=== PATIENT | female | born 1985 | race Caucasian/White ===

== ENCOUNTER → 2018-09-14 | Outpatient (CLI) | payer BC | LOC: M SLEEP HO 13:19 | DX: G47.30 Sleep apnea, unspecified (principal) | CPT/HCPCS: G0399 ==

== ENCOUNTER → 2019-01-17 | Outpatient (CLI) | payer BC ==
--- NOTE | 2019-01-23 10:37 | REP ---
Clinical: Abdominal pain. Sitz marker study. Technique: Single supine view of the abdomen and pelvis. Findings: Bowel gas pattern is nonspecific. No residual markers are identified. No organomegaly. Skeletal structures intact. No abnormal calcifications. Impression: Nonspecific abdominal radiograph. No residual sitz markers noted. Electronically Signed by Karl Lee MD 01/23/2019 10:29 A
== END ==
LOC: M RAD 13:30
PROVIDERS: ATTEND Internal Medicine Gastroenterology
DX: R93.5 Abnormal findings on diagnostic imaging of other abdominal regions, including retroperitoneum (principal); R10.9 Unspecified abdominal pain; R14.0 Abdominal distension (gaseous)

== ENCOUNTER → 2020-06-12 | Outpatient (CLI) | payer BC ==
[~2020-06-12] MED LIST: METHACHOLINE KIT (J7674) INH ONE
--- NOTE | 2020-06-26 12:57 | PFTRPT ---
Height: 63.50 Inches Weight: 153.00 Lbs BSA: 1.74 Diagnosis: R05 DATE OF STUDY: 06/12/2020 ORDERED BY: SARI Mares QUALITY: Study of excellent technical quality. PROCEDURE: Under protocol, methacholine was administered. A dose of 2.5 mg or 13.875 CDUs, a 34% decline of the FEV1 was noted. PC of 0.76 is significant. Flow rates did return to baseline post-bronchodilator administration. IMPRESSION: Positive methacholine challenge study. MTDD
== END ==
LOC: M CARPUL 13:23
PROVIDERS: ATTEND Nurse Practitioner Family
DX: R05 Cough (principal)
CPT/HCPCS: 94070; J7674

== ENCOUNTER → 2021-09-01 | Outpatient (CLI) | payer BC ==
--- NOTE | 2021-09-01 09:34 | REP ---
INDICATION: MILD PERSISTENT ASTHMA, UNCOMPLICATED COMPARISON: None. TECHNIQUE: PA and lateral. FINDINGS: The mediastinum and cardiac silhouette are normal. The lung fung are clear and without acute consolidation, effusion, or pneumothorax. The skeletal structures are intact and normal. IMPRESSION: No acute cardiopulmonary process. <Electronically signed by Karl Lee > 09/01/21 0931
== END ==
LOC: M ADAMS 09:10
PROVIDERS: ATTEND Nurse Practitioner Family
DX: J45.30 Mild persistent asthma, uncomplicated (principal)

== ENCOUNTER → 2021-09-14 | Outpatient (CLI) | payer BC | LOC: M SLEEP HO 12:40 | PROVIDERS: ATTEND Nurse Practitioner Family | DX: G47.33 Obstructive sleep apnea (adult) (pediatric) (principal) ==

== ENCOUNTER 2022-01-02 17:04 | Emergency (ER) | payer BC ==
[~2022-01-02] VITALS: Ht 162.6 cm; Wt 73.2 kg
[2022-01-02] MEDS ORDERED: ALBU8.5H (17:09)
[2022-01-02] MEDS ORDERED: PANT40TA29 (17:09)
[2022-01-02] MEDS ORDERED: ASMA16.7 (17:09)
[2022-01-02] MEDS ORDERED: LEVE500T5 (17:09)
[2022-01-02] MEDS ORDERED: FAMO40TA3 (17:09)
[2022-01-02] MEDS ORDERED: NS 1,000 ML IV ONE (17:40)
[2022-01-02] MEDS ORDERED: ONDANSETRON 4MG/2ML VIAL IV ONE (17:40)
[2022-01-02] MEDS ORDERED: KETOROLAC 30 MG/ML 1ML VIAL IV ONE (17:40)
[2022-01-02 18:35] LABS: BASO % 0.4 % (0.0-1.0); EOS # 0.2 10^3/uL (0.0-0.5); EOS % 1.5 % (0.0-3.0); HEMATOCRIT 41.3 % (36.0-47.0); LYMPH # 2.1 10^3/uL (1.5-5.0); LYMPH % 18.8 % (24.0-44.0); MEAN CORPUSCULAR HEMOGLOBIN 29.7 pg (27.0-33.0); MEAN CORPUSCULAR HGB CONC 33.9 g/dl (32.0-36.5); MEAN CORPUSCULAR VOLUME 87.7 fl (80.0-96.0); MONO # 1.1 10^3/uL (0.0-0.8); MONO % 9.8 % (2.0-8.0); NEUTROPHILS # 7.8 10^3/uL (1.5-8.5); NEUTROPHILS % 69.2 % (36.0-66.0); PLATELET COUNT, AUTOMATED 255 10^3/uL (150-450); RED BLOOD COUNT 4.71 10^6/uL (4.00-5.40); WHITE BLOOD COUNT 11.3 10^3/uL (4.0-10.0)
[2022-01-02] MEDS ORDERED: ISOVUE-370 76% 100ML VIAL As Ordered ONE (18:46)
[2022-01-02 18:52] LABS: ALT/SGPT 32 U/L (12-78); BILIRUBIN,DIRECT < 0.1 MG/DL (0.0-0.2); BILIRUBIN,TOTAL 0.2 MG/DL (0.2-1.0); LIPASE 298 U/L (73-393); TOTAL PROTEIN 7.3 GM/DL (6.4-8.2)
[2022-01-02 20:08] VITALS: BP 131/86
== END 2022-01-02 20:16 | disposition home or self-care (01) ==
LOC: M ED 17:04
DX: E28.2 Polycystic ovarian syndrome (principal); J45.909 Unspecified asthma, uncomplicated; N80.9 Endometriosis, unspecified; K21.9 Gastro-esophageal reflux disease without esophagitis; Z79.899 Other long term (current) drug therapy; F17.210 Nicotine dependence, cigarettes, uncomplicated
CPT/HCPCS: 74177; 80047; 80076; 81001; 83690; 84702; 85025; 96361; 96374; 96375; 99284; J1885; J2405; Q9967

== ENCOUNTER 2022-05-29 11:24 | Emergency (ER) | payer BC ==
[~2022-05-29] VITALS: Ht 162.6 cm; Wt 74.2 kg
[~2022-05-29 11:24] MED LIST changes: +ALBU8.5H; +ASMA16.7; +FAMO40TA3; +LEVE500T5; -METHACHOLINE KIT (J7674) INH ONE; +PANT40TA29
[2022-05-29] MEDS ORDERED: OMEP1CAP71 PO (11:40)
[2022-05-29 12:29] LABS: BASO # 0.1 10^3/uL (0.0-0.2); BASO % 0.6 % (0.0-1.0); EOS # 0.2 10^3/uL (0.0-0.5); EOS % 2.9 % (0.0-3.0); HEMOGLOBIN 14.1 g/dl (12.0-15.5); LYMPH # 2.4 10^3/uL (1.5-5.0); LYMPH % 28.7 % (24.0-44.0); MEAN CORPUSCULAR HEMOGLOBIN 30.3 pg (27.0-33.0); MEAN CORPUSCULAR HGB CONC 33.6 g/dl (32.0-36.5); MEAN CORPUSCULAR VOLUME 90.3 fl (80.0-96.0); MONO # 0.8 10^3/uL (0.0-0.8); MONO % 9.5 % (2.0-8.0); NEUTROPHILS # 4.8 10^3/uL (1.5-8.5); NEUTROPHILS % 57.8 % (36.0-66.0); PLATELET COUNT, AUTOMATED 267 10^3/uL (150-450); RED BLOOD COUNT 4.65 10^6/uL (4.00-5.40); WHITE BLOOD COUNT 8.3 10^3/uL (4.0-10.0)
[2022-05-29 12:42] LABS: INR 0.94; PARTIAL THROMBOPLASTIN TIME 25.9 SECONDS (25.9-37.0)
[2022-05-29] MEDS ORDERED: ISOVUE-370 76% 100ML VIAL As Ordered ONE ×2 (12:58→14:25)
[2022-05-29 13:10] LABS: CK-MB VALUE MASS < 1.0 NG/ML (<3.6); CPK CREATINE PHOSPHOKINASE 97 U/L (26-192); MB/CK RELATIVE INDEX 1.03 (< OR =4)
[2022-05-29 13:46] LABS: ERYTHROCYTE SEDIMENTATION RATE 19 mm/hr (0-20)
[2022-05-29] MEDS ORDERED: PRED10TA2 PO (15:50)
[2022-05-29] MEDS ORDERED: TETRACAINE 0.5% OPHTH SOLN 4ML OU ONE (16:10)
[2022-05-29 16:34] VITALS: BP 128/85
== END 2022-05-29 17:21 | disposition home or self-care (01) ==
LOC: M ED 11:24
DX: H57.02 Anisocoria (principal); J45.909 Unspecified asthma, uncomplicated; K21.9 Gastro-esophageal reflux disease without esophagitis; Z79.899 Other long term (current) drug therapy; Z87.891 Personal history of nicotine dependence
CPT/HCPCS: 36415; 70450; 70496; 70498; 71045; 80047; 82550; 82553; 84702; 85025; 85610; 85652; 85730; 86140; 86618; 93005; 93041; 94760; 99285; Q9967

== ENCOUNTER 2022-09-26 18:23 | Emergency (ER) | payer BC ==
[~2022-09-26] VITALS: Ht 162.6 cm; Wt 74.3 kg
[~2022-09-26 18:23] MED LIST changes: +OMEP1CAP71 PO; +PRED10TA2 PO
[2022-09-26 18:24] VITALS: BP 135/72
[2022-09-26 20:35] LABS: BASO % 0.3 % (0.0-1.0); EOS # 0.2 10^3/uL (0.0-0.5); HEMATOCRIT 42.5 % (36.0-47.0); HEMOGLOBIN 14.3 g/dl (12.0-15.5); LYMPH % 28.1 % (24.0-44.0); MEAN CORPUSCULAR HEMOGLOBIN 29.2 pg (27.0-33.0); MEAN CORPUSCULAR HGB CONC 33.6 g/dl (32.0-36.5); MEAN CORPUSCULAR VOLUME 86.7 fl (80.0-96.0); MONO # 0.9 10^3/uL (0.0-0.8); MONO % 8.6 % (2.0-8.0); NEUTROPHILS # 6.4 10^3/uL (1.5-8.5); NEUTROPHILS % 60.7 % (36.0-66.0); PLATELET COUNT, AUTOMATED 257 10^3/uL (150-450); WHITE BLOOD COUNT 10.5 10^3/uL (4.0-10.0)
[2022-09-26 20:48] LABS: INR 0.9; PARTIAL THROMBOPLASTIN TIME 27.1 SECONDS (24.8-34.2); PROTHROMBIN TIME 12.3 SECONDS (12.5-14.5)
[2022-09-26 21:07] LABS: ALKALINE PHOSPHATASE 98 U/L (46-116); ALT/SGPT 14 U/L (7.0-40); AST/SGOT 14 U/L (<34); BILIRUBIN,DIRECT < 0.1 MG/DL (<0.4); BILIRUBIN,TOTAL 0.2 MG/DL (0.3-1.2); BLOOD UREA NITROGEN 18 MG/DL (9-23); CALCIUM LEVEL 9.7 MG/DL (8.5-10.1); CARBON DIOXIDE LEVEL 24 MMOL/L (20-31); CHLORIDE LEVEL 109 MMOL/L (98-107); GLOMERULAR FILTRATION RATE > 60.0 (>60); GLUCOSE, FASTING 96 MG/DL (60-100); POTASSIUM SERUM 4.1 MMOL/L (3.5-5.1); SODIUM LEVEL 143 MMOL/L (136-145); TOTAL PROTEIN 7.3 G/DL (5.7-8.2)
[2022-09-26 21:21] LABS: HCG, SERUM QUALITATIVE NEGATIVE (NEGATIVE)
== END 2022-09-27 01:59 | disposition left against medical advice (07) ==
LOC: M ED 18:23
DX: Z53.21 Procedure and treatment not carried out due to patient leaving prior to being seen by health care provider (principal)

== ENCOUNTER → 2022-11-05 | Outpatient (CLI) | payer BC ==
[~2022-11-05] MED LIST changes: +PROHANCE 279.3MG/ML 15ML VIAL As Ordered ONE
== END ==
LOC: M RAD 08:27
PROVIDERS: ATTEND Physician Assistant Surgical
DX: D18.09 Hemangioma of other sites (principal); R93.89 Abnormal findings on diagnostic imaging of other specified body structures; K83.8 Other specified diseases of biliary tract
CPT/HCPCS: 74183; A9576

== ENCOUNTER → 2023-06-06 | Outpatient (CLI) | payer MEDICARE ==
[~2023-06-06] MED LIST changes: -ASMA16.7; +MOME13HF4
== END ==
LOC: M RAD 14:10
PROVIDERS: ATTEND Physician Assistant Surgical
DX: R10.13 Epigastric pain (principal); R74.8 Abnormal levels of other serum enzymes
CPT/HCPCS: 74183; A9576

== ENCOUNTER 2023-06-24 12:31 | Emergency (ER) | payer MEDICARE ==
[~2023-06-24] VITALS: Ht 162.6 cm; Wt 79.0 kg
[~2023-06-24 12:31] MED LIST changes: -PROHANCE 279.3MG/ML 15ML VIAL As Ordered ONE
[2023-06-24 12:33] VITALS: BP 139/88; TEMP 97.9; O2SAT 97
== END 2023-06-24 16:04 | disposition home or self-care (01) ==
LOC: M ED 12:31
DX: S06.0X0A Concussion without loss of consciousness, initial encounter (principal); F17.200 Nicotine dependence, unspecified, uncomplicated; W22.8XXA Striking against or struck by other objects, initial encounter; Y93.H2 Activity, gardening and landscaping

== ENCOUNTER → 2023-11-21 | Outpatient (CLI) | payer MEDICARE | LOC: M RAD 06:57 | PROVIDERS: ATTEND Physician Assistant Surgical | DX: R10.13 Epigastric pain (principal); R74.8 Abnormal levels of other serum enzymes ==

== ENCOUNTER → 2024-03-06 | Outpatient (CLI) | payer MEDICARE ==
[2024-03-06 14:18] LABS: BLOOD UREA NITROGEN 20 MG/DL (9-23); CPK CREATINE PHOSPHOKINASE 117 U/L (34-145); CREATININE FOR GFR 0.69 MG/DL (0.55-1.30); GLOMERULAR FILTRATION RATE > 60.0 (>60); THYROID STIMULATING HORMONE 0.994 uIU/ML (0.55-4.78)
[2024-03-06 14:19] LABS: VITAMIN B12 LEVEL 629 PG/ML (211-911)
[2024-03-06 14:20] LABS: FOLATE > 24.0 NG/ML (>5.4)
[2024-03-11 03:06] LABS: ANTINUCLEAR ANTIBODIES DIRECT Negative (Negative); CERULOPLASMIN 30.4 mg/dL (19.0-39.0); COPPER PLASMAX 123 ug/dL (80-158); VITAMIN B1 LEVEL WHOLE BLOOD 163.9 nmol/L (66.5-200.0); VITAMIN B6,PYRIDOXAL PHOSPHATE 32.8 ug/L (3.4-65.2); VITAMIN E(ALPHA TOCOPHEROL) 27.7 mg/L (5.9-19.4); VITAMIN E(GAMMA TOCOPHEROL) 1.7 mg/L (0.7-4.9)
== END ==
LOC: M PLALAB 10:35
PROVIDERS: ATTEND Psychiatry & Neurology Neurology
DX: R51.9 Headache, unspecified (principal); R53.1 Weakness; E61.0 Copper deficiency; G99.2 Myelopathy in diseases classified elsewhere; G58.9 Mononeuropathy, unspecified

== ENCOUNTER → 2025-09-24 | Outpatient (CLI) | payer MEDICARE ==
[2025-09-24 15:56] LABS: CREATININE FOR GFR 0.73 MG/DL (0.55-1.30); GLOMERULAR FILTRATION RATE > 90.0 (>58)
== END ==
LOC: M PLALAB 11:38
PROVIDERS: ATTEND Internal Medicine Gastroenterology
DX: I74.4 Embolism and thrombosis of arteries of extremities, unspecified (principal)